=== PATIENT | male | born 1945 | race Caucasian/White ===

== ENCOUNTER → 2018-02-20 06:45 | Outpatient (CLI) | payer MEDICARE, SELFPAY ==
--- NOTE | 2018-02-20 06:47 | CT_ITS ---
STUDY: CT ABDOMEN AND PELVIS WITH CONTRAST REASON FOR EXAM: Male, 72 years old. Gross hematuria. Abnormal bladder ultrasound. RADIATION DOSAGE (If Supplied By Facility): CTDIvol = ( 26.84 ) mGy, DLP = ( 3276.75 ) mGycm TECHNIQUE: Transaxial images were obtained from the dome of the diaphragm to the symphysis pubis without oral contrast. 100CC ml of Isovue 300 contrast was administered. Sagittal and coronal images were reconstructed. Individualized dose optimization techniques were used for this CT. COMPARISON: None. FINDINGS: There are chronic interstitial fibrotic changes of the lung bases. The visualized portions of the heart are within normal limits. There is fatty liver. Several small calcified granulomas are seen of the liver. No focal masses. Normal gallbladder and extrahepatic biliary system. There are multiple benign calcified granulomata of the spleen. Normal pancreas. Normal bilateral adrenal glands. Normal right kidney. Normal left kidney. No definite renal or ureteral stones are seen. There is no hydronephrosis on either side. No renal masses. Symmetric contrast enhancement. No hydronephrosis. Evaluation of the GI tract is limited by absence of oral contrast. Cannot exclude stomach wall thickening. No dilated loops of bowel or evidence for obstruction. Cannot exclude segmental thickening of the upton of the small or large bowel. Cannot exclude enteritis or colitis. Moderate diffuse fecal retention. Diverticulosis without definite diverticulitis. Appendix within normal limits. 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 Prominent calcification and ectasia of the common iliac arteries. Normal inferior vena cava. Normal retroperitoneum. Abnormal urinary bladder. There is new irregular 2.4 cm mass along the superior lateral right bladder wall. It can be seen on sagittal image 86, coronal image 67, and axial images 65-69. This is likely a neoplasm and cystoscopy is recommended. Normal abdominal wall. There are diffuse degenerative changes of the visualized lumbar spine. Bilateral pars defects of L4 with mild malalignment. CT/CT Abd/Pelvis W/WO Contrast IMPRESSION: Abnormal bladder with a probable neoplasm. Cystoscopy is recommended. Other less significant findings as above. Electronically Signed: Joseph Fletcher MD at 15:26 EDT , Service support ,
[2018-02-20 07:11] LABS: CREATININE FINGERSTICK 0.9 mg/dL (0.70-1.30); EGFR FINGERSTICK > 60.0000 mL/min (>60)
== END ==
PROVIDERS: Family Provider Family Medicine; PCP Family Medicine; Visit Provider Nurse Practitioner Adult Health
DX: R31.0 Gross hematuria (principal); R93.41 Abnormal radiologic findings on diagnostic imaging of renal pelvis, ureter, or bladder
CPT/HCPCS: 74178; Q9967

== ENCOUNTER 2018-02-28 10:43 | Day surgery (SDC) | payer MEDICARE, SELFPAY ==
[2018-02-26 09:51] VITALS: BP 143/85; PULSE 79; RESP 16; TEMP 36.9; O2SAT 96; BMI 36.9
--- NOTE | 2018-02-26 10:14 | SDCEKG_ITS ---
Test Reason : Blood Pressure : / mmHG Vent. Rate : 060 BPM Atrial Rate : 060 BPM P-R Int : 174 ms QRS Dur : 096 ms QT Int : 374 ms P-R-T Axes : 026 001 012 degrees QTc Int : 374 ms Sinus rhythm with marked sinus arrhythmia Possible Left atrial enlargement Borderline ECG Confirmed by ALEAH KELLY, YA ([id number]), supervising editor trailer TITO MEEKS ([id number]) on 02/28/2018 2:00:03 PM Referred By: Eleuterio Barajas Confirmed By:YA BULLARD MD
[2018-02-26 10:44] LABS: Hematocrit 40.7 % (40-54); Hemoglobin 13.6 g/dl (13.0-16.5); Mean Corp Hgb Conc 33.4 g/gl (32-36); Mean Corpuscular Hgb 30.4 pg (27.0-32.0); Mean Corpuscular Volume 90.8 fL (80-94); Mean Platelet Vol. 9.4 fl (6.2-12.0); Platelet Count 199 K/mm3 (150-450); RBC Distribution Width CV 13.7 % (11.6-14.6); RBC Distribution Width SD 44.8 fl (35.1-43.9); Red Blood Count 4.48 M/mm3 (4.6-6.2); White Blood Count 6.5 K/mm3 (4.4-11.0)
[2018-02-26 10:46] LABS: Scan Indicated on CBC? Y/N NO
[2018-02-26 11:07] LABS: Anion Gap 6 (5-15); BUN 13 mg/dL (7-18); BUN/Creat Ratio 12.3 RATIO (10-20); Calcium,Total 9.1 mg/dL (8.5-10.1); Chloride 105 mmol/L (98-107); Creatinine, Serum 1.06 mg/dL (0.70-1.30); EST Glomerular Filtration Rate 73 mL/min (>60); Est Glom Filt Rate - Afr Amer 88 mL/min (>60); Estimated Creatinine Clearance 58.89 ml/min; Glucose 160 mg/dL (74-106); Hemoglobin A1c 7.8 % (4.2-6.3); Potassium 4.1 mmol/L (3.5-5.1); Sodium Level 139 mmol/L (136-145)
--- NOTE | 2018-02-28 | BLA_PTH ---
PATIENT: CUCO COSBY LOC: [facility] [place] U#:[id number] AGE/SX: 72/M ROOM: RE02/28/[address]: Dr. Eleuterio Barajas MD : 1945 BED: DIS: 02/28/2018 SPEC #: [id number] RECD: 02/28/18 14:53 STATUS: OMID CM #: [id number] JATINDER: 02/28/18 00:[address]: Eleuterio Barajas DEPT: SURGICAL PATHOLOGY RECD BY: Edinson Pfeiffer ENTERED: 02/28/18 14:53 SP TYPE: BLADDER BX OTHR DR: Dr. Jayesh Parks MD Tissues: Urinary bladder, NOS Procedures: Surgery Specimen Level V HEADER OPERATION: Cysto, TUR bladder tumor, Olympus PRE-OP DIAGNOSIS: Bladder cancer TISSUE SUBMITTED: Bladder tissue MICROSCOPIC DIAGNOSIS Bladder tumor, TUR: Papillary urothelial carcinoma. See cancer summary below. BLADDER CANCER (TUR) SUMMARY: Procedure - TURBT Histologic type ? urothelial (transitional cell) carcinoma Associated epithelial lesions ? none identified Histologic grade - urothelial carcinoma (WHO 2004/ISUP) ? low grade (1-2/3) Tumor configuration - papillary Adequacy of material for determining muscularis propria invasion - muscularis propria (detrusor muscle) is present and free of tumor. Lymph-Vascular invasion ? not identified Microscopic extent of tumor ? noninvasive papillary carcinoma Additional pathologic findings ? chronic inflammation The above summary is in compliance with [employer] [place] [employer] (CAP) Cancer Protocols Checklist and [place] Joint Committee on Cancer (AJCC), Staging Manual, 8th Ed. SJ:ann marie 03/03/18 MICROSCOPIC DESCRIPTION Slides are reviewed. GROSS DESCRIPTION Received in fixative is one container labeled with the patient's name and designated bladder tumor. The specimen consists of multiple irregular and friable fragments of pink-lovell soft tissue that in aggregate measure 5 x 3 x 0.2 cm. The specimen is totally submitted in two cassettes. / AM:ann marie 02/28/18 TC:0 CPT: 51703
[2018-02-28 11:16] VITALS: BP 175/92; PULSE 77; RESP 16; TEMP 36.1; O2SAT 98; BMI 36.9
[2018-02-28 11:50] LABS: Bedside Glucose 155 mg/dL (70-110)
--- NOTE | 2018-02-28 12:59 | PCM.DC.URO ---
Discharge Diet: Light diet - advance as tolerated Discharge Activity: May not drive while taking narcotic pain medications. Call your doctor if your incision/area has: Sudden Increased Bleeding Instructions: Treating Bladder Cancer: TUR (Transurethral Resection) Allergies/Adverse Reactions: Allergies Penicillins [PCN] Allergy (Verified 02/26/18 09:46) Other Medications to take at Discharge Amlodipine Besylate [Norvasc] 10 mg PO QHS 02/26/18 Aspirin [Adult Aspirin] 81 mg PO DAILY 02/26/18 Atorvastatin Calcium [Lipitor] 20 mg PO QHS 02/26/18 Ciprofloxacin [Cipro] 500 mg PO BID #6 tab 02/28/18 Hydrocodone/Acetaminophen [Columbus 5-325 Tablet] 1 ea PO Q4H PRN PRN 5 Days #14 tab 02/28/18 The following prescriptions were given: Hydrocodone/Acetaminophen [Columbus 5-325 Tablet] 1 ea PO Q4H PRN PRN 5 Days #14 tab PRN Reason: Pain Ciprofloxacin [Cipro] 500 mg PO BID #6 tab Primary Care Physician: Jayesh Parks [Primary Care Provider] - Please Follow Up With: Eleuterio Barajas MD When: March 11 at 2:45 pm
[2018-02-28] MEDS: Cefazolin 2 GM in 0.9% Normal Saline 100 ML IV (13:06)
--- NOTE | 2018-02-28 13:45 | PCM.OPRPT ---
Report of Operation Date of Procedure: 02/28/18 Pre-Operative Diagnosis: Large bladder mass in the right lateral wall Post-Operative Diagnosis: Same Surgery/Procedure Performed:: Transurethral resection of a large bladder tumor and instillation of mitomycin-C Description of Surgical Findings:: 72-year-old male taken back to the operating room after smooth induction of general anesthesia. penis and testicles were prepped and draped in usual sterile fashion. I went into the bladder with a 21 Guyanese rigid cystourethroscope did a andersen cystoscopy with 30 and 70? lens. Identified a large bladder tumor coming off the lateral wall on the right side. The tumor fortunately appeared superficial and noninvasive. I then switched over to the 24 Guyanese noncontinuous flow resectoscope Olympus. I resected this tumor completely down to the muscle fibers on the right side we did require paralysis to avoid an obturator reflex. After complete resection of the tumor I cauterized the base and the edges, Ellik out all the tumors. I then reinspected the bladder with 30 and 70? lens I could not identify any more papillary tumors within the bladder trigone was uninvolved the left and right ureteral orifice normal prostate was normal in size nonobstructive. I then drained the bladder I placed an 18 Guyanese catheter in the bladder instilled 40 cc of 30 mg of mitomycin-C for a post chemo dose. Patient anesthetic was being reversed plan to hold the chemotherapy 1 hour in the bladder. Type of Anesthesia:: General Drains: none - Admit VTE Documentation VTE Present on Admission: No VTE Mechan Device Prophylaxis: SCD's VTE Pharm Prophylaxis ordered?: No Reason prophylaxis not ordered:: Treatment Not Indicated
--- NOTE | 2018-02-28 13:48 | OP.PCM_ITS ---
Report of Operation Date of Procedure: 02/28/18 Pre-Operative Diagnosis: Large bladder mass in the right lateral wall Post-Operative Diagnosis: Same Surgery/Procedure Performed:: Transurethral resection of a large bladder tumor and instillation of mitomycin-C Description of Surgical Findings:: 72-year-old male taken back to the operating room after smooth induction of general anesthesia. penis and testicles were prepped and draped in usual sterile fashion. I went into the bladder with a 21 [place] Islander rigid cystourethroscope did a andersen cystoscopy with 30 and 70? lens. Identified a large bladder tumor coming off the lateral wall on the right side. The tumor fortunately appeared superficial and noninvasive. I then switched over to the 24 [place] Islander noncontinuous flow resectoscope Olympus. I resected this tumor completely down to the muscle fibers on the right side we did require paralysis to avoid an obturator reflex. After complete resection of the tumor I cauterized the base and the edges, Ellik out all the tumors. I then reinspected the bladder with 30 and 70? lens I could not identify any more papillary tumors within the bladder trigone was uninvolved the left and right ureteral orifice normal prostate was normal in size nonobstructive. I then drained the bladder I placed an 18 Cook Islander catheter in the bladder instilled 40 cc of 30 mg of mitomycin-C for a post chemo dose. Patient anesthetic was being reversed plan to hold the chemotherapy 1 hour in the bladder. Type of Anesthesia:: General Drains: none - Admit VTE Documentation VTE Present on Admission: No VTE Mechan Device Prophylaxis: SCD's VTE Pharm Prophylaxis ordered?: No Reason prophylaxis not ordered:: Treatment Not Indicated
[2018-02-28 13:59] VITALS: BP 164/76; BP 175/92; PULSE 83; RESP 16; TEMP 36.6; O2SAT 93
[2018-02-28 14:14] VITALS: BP 141/87; BP 175/92; PULSE 74; RESP 18; O2SAT 98
[2018-02-28 14:24] VITALS: BP 141/85; BP 175/92; PULSE 78; RESP 18; TEMP 36.2; O2SAT 95
[2018-02-28 14:50] VITALS: BP 175/92
== END 2018-02-28 15:32 | disposition home or self-care (01) ==
LOC: SDC 10:44 → AC 10:46
PROVIDERS: Anesthesiology; Family Provider Family Medicine; PCP Family Medicine; Visit Provider Urology
PROC: 0TBB8ZZ Excision of Bladder, Via Natural or Artificial Opening Endoscopic (ICD-10-PCS; CPT 51720; principal; 2018-02-28 12:40)
DX: C67.2 Malignant neoplasm of lateral wall of bladder (principal); R31.0 Gross hematuria; E11.9 Type 2 diabetes mellitus without complications; E78.00 Pure hypercholesterolemia, unspecified; G47.30 Sleep apnea, unspecified; Z79.82 Long term (current) use of aspirin; Z79.899 Other long term (current) drug therapy; Z87.891 Personal history of nicotine dependence
CPT/HCPCS: 51720; 52240; 80048; 82962; 83036; 85027; 88305; 88307; 93005; J7120; J3490; J9280

== ENCOUNTER → 2018-04-15 09:31 | Outpatient (CLI) | payer MEDICARE, SELFPAY | PROVIDERS: Family Provider Family Medicine; PCP Family Medicine; Visit Provider Nurse Practitioner Adult Health | DX: R30.0 Dysuria (principal) | CPT/HCPCS: 87086; 87088 ==

== ENCOUNTER → 2019-07-27 16:38 | Outpatient (CLI) | payer MEDICARE, SELFPAY ==
--- NOTE | 2019-07-27 | CYSPIN_PTH ---
PATIENT: CUCO COSBY LOC: [facility] U#:[id number] AGE/SX: 79/M ROOM: RE07/27/[address]: Dr. Eleuterio Barajas MD : 1945 BED: DIS: SPEC #: [id number] RECD: 07/28/19 09:25 STATUS: OMID CM #: [id number] JATINDER: 07/27/19 00:[address]: Eleuterio Barajas DEPT: CYTOLOGY RECD BY: Edinson Pfeiffer ENTERED: 07/28/19 09:27 SP TYPE: CYSPIN FL OTHR DR: Dr. Jayesh Parks MD Tissues: Urine Procedures: Pap Stain (control) Special Stain Group II Cytospin Fluid HEADER OPERATION: Not noted PRE-OP DIAGNOSIS: History of bladder cancer TISSUE SUBMITTED: Urine for cytology DIAGNOSIS CYTOLOGY Urine for cytology (cytospin): Negative for malignant cells. Acute inflammation and bacterial colonies. AM:ann marie 10/9/19 CYTOLOGY STUDY Slides are reviewed. CYTOLOGY GROSS Received is 40 ml of yellow clear fluid labeled with the patient's name and and designated per the requisition as urine. Submitted for cytology preparation. / ann marie 07/28/19 TC:2 CPT: 91907
[2019-07-27 17:34] LABS: Cytology, Body Fluid / CSF SEE PATHOLOGY REPORT
== END ==
PROVIDERS: Family Provider Family Medicine; PCP Family Medicine; Referring Provider Urology; Visit Provider Urology
DX: Z85.51 Personal history of malignant neoplasm of bladder (principal)
CPT/HCPCS: 88108; 88313

== ENCOUNTER → 2019-08-10 08:13 | Outpatient (CLI) | payer MEDICARE, SELFPAY ==
--- NOTE | 2019-08-10 08:00 | BLA_PTH ---
PATIENT: CUCO COSBY LOC: [facility] U#:[id number] AGE/SX: 79/M ROOM: RE08/10/[address]: Dr. Eleuterio Barajas MD : 1945 BED: DIS: SPEC #: [id number] RECD: 08/10/19 17:20 STATUS: OMID CM #: [id number] JATINDER: 08/10/19 08:[address]: Eleuterio Barajas DEPT: SURGICAL PATHOLOGY RECD BY: Cleveland Michael ENTERED: 08/11/19 09:02 SP TYPE: BLADDER BX OTHR DR: Dr. Jayesh Parks MD Tissues: Urinary bladder, NOS Procedures: Surgery Specimen Level IV HEADER OPERATION: Bladder lesion PRE-OP DIAGNOSIS: Bladder lesion TISSUE SUBMITTED: Bladder biopsy MICROSCOPIC DIAGNOSIS Bladder lesion, biopsy: Fragments of urothelial mucosa with moderate chronic inflammation and mild epithelial atypia. Negative for malignancy. See comment. SERENE:ann marie 08/12/19 COMMENT Clinical correlation and appropriate follow up are necessary. Please make reference to previous specimen ([id number]) bladder tumor, TUR with diagnosis of papillary urothelial carcinoma. MICROSCOPIC DESCRIPTION Slides are reviewed. GROSS DESCRIPTION Received in fixative is one container labeled with the patient's name and designated bladder biopsy. The specimen consists of one irregular fragment of light lovell soft tissue that measures 0.3 x 0.1 x 0.1 cm. The specimen is totally submitted in one cassette. / SJ:rg 08/11/19 TC:3 CPT: 36482
== END ==
PROVIDERS: Family Provider Family Medicine; PCP Family Medicine; Referring Provider Urology; Visit Provider Urology
DX: N32.9 Bladder disorder, unspecified (principal)
CPT/HCPCS: 88305

== ENCOUNTER → 2020-03-08 | Outpatient (CLI) | payer MEDICARE, SELFPAY ==
--- NOTE | 2020-03-08 08:30 | CYSPIN_PTH ---
PATIENT: CUCO COSBY LOC: [facility] U#:[id number] AGE/SX: 74/M ROOM: RE03/08/[address]: Dr. Eleuterio Barajas MD : 1945 BED: DIS: 03/08/2020 SPEC #: [id number] RECD: 03/09/20 09:08 STATUS: OMID CM #: [id number] JATINDER: 03/08/20 08:[address]: Eleuterio Barajas DEPT: CYTOLOGY RECD BY: Kodak Ya ENTERED: 03/09/20 09:08 SP TYPE: CYSPIN FL OTHR DR: Dr. Jayesh Parks MD Tissues: Urine Procedures: Pap Stain (control) Special Stain Group II Cytospin Fluid HEADER OPERATION: Not noted PRE-OP DIAGNOSIS: Malignant neoplasm of trigone of bladder TISSUE SUBMITTED: Urine for cytology DIAGNOSIS CYTOLOGY Urine for cytology (cytospin): A few mildly atypical urothelial cells noted. Acute inflammation. See comment. SJ:ann marie 03/10/20 COMMENT Differential diagnosis includes infection, calculi or low-grade urothelial neoplasm. Correlation with clinical findings and appropriate follow up are necessary. Please make reference to previous specimens ([id number]) bladder tumor, TUR with diagnosis of papillary urothelial carcinoma and ([id number]) bladder lesion, biopsy with diagnosis of fragments of urothelial mucosa with moderate chronic inflammation and mild epithelial atypia. Case has been reviewed in consultation with Dr. Canseco who concurs with the above diagnosis. IDC:AM CYTOLOGY STUDY Slides are reviewed. CYTOLOGY GROSS Received is 60 ml of yellow cloudy fluid labeled with the patient's name and and designated per the requisition as urine. Submitted for cytology preparation. / ann marie 03/09/20 TC:5 CPT: 68384
[2020-03-08 17:06] LABS: Cytology, Body Fluid / CSF SEE PATHOLOGY REPORT
== END | disposition home or self-care (01) ==
PROVIDERS: PCP Family Medicine; Referring Provider Urology; Visit Provider Urology
DX: C67.0 Malignant neoplasm of trigone of bladder (principal)
CPT/HCPCS: 88108; 88313

== ENCOUNTER → 2020-07-26 | Outpatient (CLI) | payer MEDICARE, SELFPAY ==
--- NOTE | 2020-07-26 | FLU_PTH ---
PATIENT: CUCO COSBY LOC: [facility] U#:[id number] AGE/SX: 74/M ROOM: RE07/26/[address]: Dr. Eleuterio Barajas MD : 1945 BED: DIS: 07/26/2020 SPEC #: [id number] RECD: 07/26/20 12:16 STATUS: OMID CM #: [id number] JATINDER: 07/26/20 00:[address]: Eleuterio Barajas DEPT: CYTOLOGY RECD BY: Cleveland Michael ENTERED: 07/26/20 12:17 SP TYPE: Fluid OTHR DR: Dr. Jayesh Parks MD Tissues: Urine Procedures: Special Stain Group II Cytospin Fluid HEADER OPERATION: Not noted PRE-OP DIAGNOSIS: Malignant neoplasm of bladder TISSUE SUBMITTED: Urine for cytology DIAGNOSIS CYTOLOGY Urine for cytology (cytospin): Negative for malignant cells. See comment. AM:ann marie 07/27/20 COMMENT The specimen primarily contains benign squamous epithelial cells. Clinical correlation is suggested. CYTOLOGY STUDY Slides are reviewed. CYTOLOGY GROSS Received is 100 ml of yellow hazy fluid labeled with the patient's name and and designated per the requisition as urine. Submitted for cytology preparation. / ann marie 07/26/20 TC:5 CPT: 99957
[2020-07-26 11:24] LABS: Cytology, Body Fluid / CSF SEE PATHOLOGY REPORT
== END | disposition home or self-care (01) ==
PROVIDERS: PCP Family Medicine; Referring Provider Urology; Visit Provider Urology
DX: C67.2 Malignant neoplasm of lateral wall of bladder (principal)
CPT/HCPCS: 88108; 88313

== ENCOUNTER → 2021-07-27 | Outpatient (CLI) | payer MEDICARE, SELFPAY ==
--- NOTE | 2021-07-27 09:15 | CYSPIN_PTH ---
PATIENT: CUCO COSBY LOC: [facility] U#:[id number] AGE/SX: 75/M ROOM: RE07/27/[address]: Dr. Eleuterio Barajas MD : 1945 BED: DIS: 07/27/2021 SPEC #: [id number] RECD: 07/27/21 13:10 STATUS: OMID REQ #: [id number] JATINDER: 07/27/21 09:[address]: Eleuterio Barajas DEPT: CYTOLOGY RECD BY: Marcelle Sam ENTERED: 07/27/21 13:10 SP TYPE: CYSPIN FL OTHR DR: Dr. Jayesh Parks MD Tissues: Urine Procedures: Pap Stain (control) Special Stain Group II Cytospin Fluid HEADER OPERATION: Not noted PRE-OP DIAGNOSIS: Malignant neoplasm of bladder TISSUE SUBMITTED: Urine for cytology DIAGNOSIS CYTOLOGY Urine for cytology (cytospin): Negative for malignant cells. AM:ann marie 07/28/2021 CYTOLOGY STUDY Slides are reviewed. CYTOLOGY GROSS Received is 70 ml of light yellow cloudy fluid labeled with the patient's name and and designated per the requisition as urine. Submitted for cytology preparation. / ann marie 07/27/2021 TC:5 CPT: 84446
[2021-07-27 12:59] LABS: Cytology, Body Fluid / CSF SEE PATHOLOGY REPORT
== END | disposition home or self-care (01) ==
LOC: LABSPEC 12:00
PROVIDERS: PCP Family Medicine; Referring Provider Urology; Visit Provider Urology
DX: Z08 Encounter for follow-up examination after completed treatment for malignant neoplasm (principal); Z85.51 Personal history of malignant neoplasm of bladder
CPT/HCPCS: 88108; 88313

== ENCOUNTER → 2022-08-27 | Outpatient (CLI) | payer MEDICARE, SELFPAY ==
--- NOTE | 2022-08-27 | CYSPIN_PTH ---
PATIENT: CUCO COSBY LOC: [facility] U#:[id number] AGE/SX: 76/M ROOM: RE08/27/[address]: Dr. Eleuterio Barajas MD : 1945 BED: DIS: 08/27/2022 SPEC #: [id number] RECD: 08/28/22 08:20 STATUS: OMID REGenoveva #: [id number] JATINDER: 08/27/22 00:[address]: Eleuterio Barajas DEPT: CYTOLOGY RECD BY: Edinson Pfeiffer ENTERED: 08/28/22 08:20 SP TYPE: CYSPIN FL OTHR DR: Dr. Jayesh Parks MD Tissues: Urine Procedures: Pap Stain (control) Special Stain Group II Cytospin Fluid HEADER OPERATION: Not noted PRE-OP DIAGNOSIS: Malignant neoplasm of bladder TISSUE SUBMITTED: Urine for cytology DIAGNOSIS CYTOLOGY Urine for cytology (cytospin): Rare mildly atypical urothelial cells noted (Citlaly Cytology Category III). See comment. SJ:ann marie 08/28/2022 COMMENT The Citlaly System for urine cytology diagnostic categorization was used in the evaluation of this case. Please make reference to previous specimen ([id number]) bladder tumor, TUR with diagnosis of ?papillary urothelial carcinoma.? Case has been reviewed in consultation with Dr. Canseco who concurs with the above diagnosis. IDC:AM CYTOLOGY STUDY Slides are reviewed. CYTOLOGY GROSS Received is 40 ml of gold cloudy fluid labeled with the patient's name and and designated per the requisition as urine. Submitted for cytology preparation. / ann marie 08/27/2022 TC:5 CPT: 52869
[2022-08-27 15:58] LABS: Cytology, Body Fluid / CSF SEE PATHOLOGY REPORT
== END | disposition home or self-care (01) ==
LOC: LABSPEC 15:35
PROVIDERS: PCP Family Medicine; Referring Provider Urology; Visit Provider Urology
DX: C67.2 Malignant neoplasm of lateral wall of bladder (principal)
CPT/HCPCS: 88108; 88313

== ENCOUNTER → 2024-12-17 | Outpatient (CLI) | payer MEDICARE, SELFPAY | END | disposition home or self-care (01) | LOC: PSN 07:44 | PROVIDERS: PCP Family Medicine; Referring Provider Family Medicine; Visit Provider Family Medicine | DX: J44.9 Chronic obstructive pulmonary disease, unspecified (principal) | CPT/HCPCS: 94060; 94726; 94729 ==

== ENCOUNTER → 2025-04-29 | Outpatient (CLI) | payer MEDICARE, SELFPAY ==
[2025-04-29 13:33] VITALS: PULSE 101; PULSE 105; PULSE 106; PULSE 110; PULSE 112; PULSE 90; PULSE 96; O2SAT 83; O2SAT 84; O2SAT 89; O2SAT 90; O2SAT 91; O2SAT 94; O2SAT 95
--- NOTE | 2025-04-29 13:33 | CPS ---
During pt's 6 minute walk, at the 1 minute smith he had desatted to 84% so 2lpm O2 via NC was applied. He had increased WOB while walking and desatted to 83% at 3 minutes so O2 was increased to 4lpm. Pt gets all his medical supplies through [facility] [phone]. He currently wears 1lmp O2 bled into his CPAP @[facility]..
--- NOTE | 2025-04-29 14:03 | CT_ITS ---
PROCEDURE: CHEST WITHOUT CONTRAST 04/29/2025 REASON FOR EXAM: HIGH RESOLUTION EVAL FOR ILD TECHNIQUE: Chest CT without contrast. Coronal and Sagittal reconstruction series were provided. One or more dose reduction techniques were used (e.g., Automated exposure control, adjustment of the mA and/or kV according to patient size, use of iterative reconstruction technique RADIATION DOSE SUMMARY: CTDlvol: mGy DLP mGycm COMPARISON: none FINDINGS: Diffuse bilateral pulmonary rather symmetrical interstitial, interlobular septae and bronchial wall thickening with subpleural reticular densities, scattered patchy ground glass veiling, fibrotic and thick atelectatic plates. No pulmonary masses or consolidations. Calcified mediastinal lymph nodes, splenic and hepatic granulomas. Cardiomegaly. Vascular atheromatous calcifications. Sternotomy suture wires Trachea and main stem bronchi are unremarkable. No pleural or pericardial collections. Thoracic spondylodegenerative changes. CT/Chest without Contrast IMPRESSION: Bilateral pulmonary interstitial lung changes with scattered patchy ground glas s veiling, thick atelectatic plates, possibly interstitial lung disease (UIP). Cardiomegaly. No acute cardiopulmonary abnormality Reading Location: [place] [address]
--- NOTE | 2025-04-30 11:39 | PCM.PSN.6M ---
PSN 6 Minute Walk Test 6 Minute Walk Test 6 Minute Walk Test: 6 Minute Walk Test PSN:6-Minute Walk Test Start: 04/29/25 14:05 Freq: Status: Active Protocol: RESP.6MINW Document 04/29/25 13:33 WLB (Rec: 04/29/25 14:15 WLB [id number]) 6 Minute Walk Test Date Performed 04/29/25 Time Performed 13:33 Height 5 ft 7 in Weight: 202 lb Weight in Pounds 202.[address]: Chang Parks Assistive device None used: Pre-test Oxygen Delivery Room Air Method Pulse Ox (%) 91 Pulse Rate (60-100 90 beats/min) Dyspnea Erna Scale ( 1 0-10) Exertion Erna Scale 7 (6-20) 1st minute Oxygen Delivery Room Air Method Pulse Ox (%) 84 Pulse Rate (60-100 101 H beats/min) Reported Symptoms Increased Work of Breathing 2nd minute Oxygen Flow Rate (L/ 2 min) (L/min) Oxygen Delivery Nasal Cannula Method Pulse Ox (%) 90 Pulse Rate (60-100 106 H beats/min) 3rd minute Oxygen Flow Rate (L/ 2 min) (L/min) Oxygen Delivery Nasal Cannula Method Pulse Ox (%) 83 Pulse Rate (60-100 112 H beats/min) Reported Symptoms Increased Work of Breathing 4th minute Oxygen Flow Rate (L/ 4 min) (L/min) Oxygen Delivery Nasal Cannula Method Pulse Ox (%) 89 Pulse Rate (60-100 105 H beats/min) Reported Symptoms Increased Work of Breathing 5th minute Oxygen Flow Rate (L/ 4 min) (L/min) Oxygen Delivery Nasal Cannula Method Pulse Ox (%) 94 Pulse Rate (60-100 106 H beats/min) Reported Symptoms Increased Work of Breathing 6th minute Oxygen Flow Rate (L/ 4 min) (L/min) Oxygen Delivery Nasal Cannula Method Pulse Ox (%) 89 Pulse Rate (60-100 110 H beats/min) Dyspnea Erna Scale ( 8 0-10) Exertion Erna Scale 10 (6-20) Reported Symptoms Increased Work of Breathing Post-test Oxygen Flow Rate (L/ 4 min) (L/min) Oxygen Delivery Nasal Cannula Method Pulse Ox (%) 95 Pulse Rate (60-100 96 beats/min) 04/29/25 13:33 (created 04/29/25 14:11) Cardiopulmonary Services by Yahaira Torres During pt's 6 minute walk, at the 1 minute smith he had desatted to 84% so 2lpm O2 via NC was applied. He had increased WOB while walking and desatted to 83% at 3 minutes so O2 was increased to 4lpm. Pt gets all his medical supplies through [facility] [phone]. He currently wears 1lmp O2 bled into his CPAP @[facility].. Initialized on 04/29/25 14:11 - END OF NOTE Interpretation Interpretation: The patient ambulated feet over the course of 6 minutes beginning on room air without assistive devices. Pretesting oxygen saturation was noted to be 91% on room air. With ambulation, the patient desaturated on several occasions requiring 4 L/min of supplemental oxygen to maintain appropriate saturations. Recommendations Recommendations: 4 L/min of supplemental oxygen should be utilized with exertion.
== END | disposition home or self-care (01) ==
PROVIDERS: PCP Family Medicine; Referring Provider Internal Medicine Critical Care Medicine; Visit Provider Internal Medicine Critical Care Medicine
DX: J98.4 Other disorders of lung (principal)
CPT/HCPCS: 71250; 94618

== ENCOUNTER → 2025-05-04 | Outpatient (CLI) | payer MEDICARE, SELFPAY | END | disposition home or self-care (01) | PROVIDERS: PCP Family Medicine; Referring Provider Internal Medicine Critical Care Medicine; Visit Provider Internal Medicine Critical Care Medicine | DX: J45.909 Unspecified asthma, uncomplicated (principal) | CPT/HCPCS: 94060; 94726; 94729 ==

== ENCOUNTER → 2025-05-18 | Outpatient (CLI) | payer MEDICARE, SELFPAY ==
[2025-05-19 12:09] LABS: Anti-Chromatin <0.2 AI (0.0-0.9); Anti-Jo <0.2 AI (0.0-0.9); Anti-dsDNA Ab <1 IU/mL (0-9); SJOGREN'S Anti-SS-A test < 0.2 AI (0.0-0.9); SJOGREN'S Anti-SS-B test < 0.2 AI (0.0-0.9)
[2025-05-20 08:09] LABS: Cytoplasmic Ab (C-ANCA) <1:20 titer (Neg:<1:20); Perinuclear Ab (P-ANCA) <1:20 titer (Neg:<1:20)
== END | disposition home or self-care (01) ==
LOC: LAB 09:38
PROVIDERS: PCP Family Medicine; Referring Provider Nurse Practitioner Acute Care; Visit Provider Nurse Practitioner Acute Care
DX: R06.02 Shortness of breath (principal)
CPT/HCPCS: 36415; 86037; 86200; 86225; 86235; 86431

== ENCOUNTER → 2025-06-08 | Outpatient (CLI) | payer MEDICARE, SELFPAY | END | disposition home or self-care (01) | LOC: SL 12:03 | PROVIDERS: PCP Family Medicine; Referring Provider Nurse Practitioner Acute Care; Visit Provider Nurse Practitioner Acute Care | DX: G47.34 Idiopathic sleep related nonobstructive alveolar hypoventilation (principal) | CPT/HCPCS: 94762 ==

== ENCOUNTER → 2025-07-14 | Outpatient (CLI) | payer MEDICARE, SELFPAY | END | disposition home or self-care (01) | LOC: SL 19:37 | PROVIDERS: PCP Family Medicine; Referring Provider Nurse Practitioner Acute Care; Visit Provider Nurse Practitioner Acute Care | DX: G47.33 Obstructive sleep apnea (adult) (pediatric) (principal) | CPT/HCPCS: 95810 ==

== ENCOUNTER → 2025-08-03 | Outpatient (CLI) | payer MEDICARE, SELFPAY | END | disposition home or self-care (01) | LOC: SL 19:42 | PROVIDERS: PCP Family Medicine; Referring Provider Nurse Practitioner Acute Care; Visit Provider Nurse Practitioner Acute Care | DX: G47.33 Obstructive sleep apnea (adult) (pediatric) (principal) | CPT/HCPCS: 95811 ==